=== PATIENT | male | born 1965 | race Caucasian/White ===

== ENCOUNTER 2016-09-19 08:47 | Outpatient (CLI) | payer OTHER | END 2016-09-19 08:48 | disposition home or self-care (01) | DX: G47.33 Obstructive sleep apnea (adult) (pediatric) (principal) ==

== ENCOUNTER 2016-10-25 08:43 | Outpatient (CLI) | payer OTHER | END 2016-10-25 08:44 | disposition home or self-care (01) | LOC: SC 08:43 | PROVIDERS: ATTEND Nurse Practitioner Family | DX: G47.33 Obstructive sleep apnea (adult) (pediatric) (principal) | CPT/HCPCS: 99212; 99214 ==

== ENCOUNTER 2017-09-14 08:57 | Emergency (ER) | payer OTHER ==
--- NOTE | 2017-09-14 10:09 | XRAY Report ---
EXAM: CHEST RADIOGRAPHY EXAM DATE: 09/14/2017 09:49 AM. CLINICAL HISTORY: Dyspnea. Cough for 5 days. COMPARISON: None. TECHNIQUE: 2 views. FINDINGS: Lungs/Pleura: No focal consolidation evident. No pleural effusion. No pneumothorax. Normal volumes. Mediastinum: Heart and mediastinal contours are unremarkable. Other: None. IMPRESSION: Normal 2-view chest radiography. [facility] Referring Provider Line: [phone] SITE ID: [id number]
--- NOTE | 2017-09-14 10:09 | XRAY Preliminary Report ---
Exam: XR CHEST 2 VIEW X-RAY IMPRESSION: Normal 2-view chest radiography. [facility] SITE ID: [id number]
[2017-09-14] MEDS ORDERED: IBUPROFEN 800 MG TABLET PO STA (10:39)
[2017-09-14] MEDS ORDERED: OSELTAMIVIR 75 MG CAPSULE PO STA (10:39)
--- NOTE | 2017-09-14 10:39 | ED Physician Documentation ---
PD HPI URI - Stated complaint Stated Complaint: V/D/UNABLE TO BREATH - Chief complaint Chief Complaint: Resp - History obtained from History obtained from: Patient - History of Present Illness Timing - onset: How many days ago (4) Timing duration: Days (4) Timing details: Still present Associated symptoms: Fever, Sore throat, Productive cough Contributing factors: Sick contact (Son with similar symptoms.) - Additional information Additional information: The patient is a 52-year-old male who presents with sore throat, cough, and shortness of breath that started 4 days ago and has been persisting. He had vomiting and diarrhea initially but those symptoms have resolved. He denies recent fever, but has been taking ibuprofen. His son has been sick with similar symptoms. Review of Systems Constitutional: reports: Fatigue. denies: Fever Eyes: denies: Discharge Ears: denies: Ear pain Nose: denies: Congestion Throat: reports: Sore throat Cardiac: denies: Chest pain / pressure Respiratory: reports: Dyspnea, Cough GI: denies: Abdominal Pain : denies: Dysuria Skin: denies: Rash Neurologic: denies: Headache PD PAST MEDICAL HISTORY - Past Medical History Cardiovascular: Hypertension Respiratory: Asthma, Other Neuro: None Endocrine/Autoimmune: None GI: None : None HEENT: None Psych: None Musculoskeletal: None Derm: None - Past Surgical History Past Surgical History: Yes HEENT: Tonsil/Adenoidectomy - Present Medications Home Medications: Ambulatory Orders Medication Instructions Recorded Confirmed Albuterol Sulfate [Proair Hfa] 1 puffs INH DAILY 06/17/15 05/29/16 Lisinopril 1 tab PO DAILY 05/29/16 05/29/16 Triamcinolone Acetonide [Nasacort] 1 spray JAG DAILY 05/29/16 05/29/16 Oseltamivir [Tamiflu] 75 mg PO BID #14 capsule 09/14/17 - Allergies Allergies/Adverse Reactions: Allergies Allergy/AdvReac Type Severity Reaction Status Date / Time No Known Drug Allergies Allergy Verified 09/14/17 09:13 - Social History Does the pt smoke?: No Smoking Status: Never smoker Does the pt drink ETOH?: Yes Does the pt have substance abuse?: No - Immunizations Immunizations are current?: Yes - POLST Patient has POLST: No PD ED PE NORMAL - Vitals Vital signs reviewed: Yes (Initially hypertensive.) - General General: Alert and oriented X 3, Well developed/nourished, Other (Appears somewhat miserable.) - HEENT HEENT: Atraumatic, Ears normal, Moist mucous membranes, Pharynx benign - Neck Neck: Supple, no meningeal sign, No adenopathy (Mildly enlarged anterior cervical nodes bilaterally.) - Cardiac Cardiac: RRR, No murmur - Respiratory Respiratory: Clear bilaterally - Abdomen Abdomen: Soft, Non tender - Back Back: No CVA TTP - Derm Derm: No rash - Extremities Extremities: No edema, No calf tenderness / cord - Neuro Neuro: Alert and oriented X 3, No motor deficit, Normal speech Results - Vitals Vitals: Oxygen O2 Source Room air - Labs Labs: Laboratory Tests 09/14/17 09:20 Influenza A (Rapid) POSITIVE H Influenza B (Rapid) Negative Influenza Types A,B Ag + H - Rads (name of study) CXR Radiology: Prelim report reviewed, EMP read contemporaneously, See rad report ( Normal 2 view chest x-ray.) PD MEDICAL DECISION MAKING - ED course Complexity details: reviewed results, re-evaluated patient, considered differential, d/w patient ED course: The patient's presentation is consistent with influenza, and his influenza swab is positive for influenza A. Chest x-ray reveals no infiltrate or effusion. Treatment in the emergency department included administration of Tamiflu 75 mg orally, and ibuprofen 800 mg orally. He is being discharged with a prescription for Tamiflu. I discussed with him the expected course of illness, outpatient treatment and follow-up, as well as potentially worrisome signs or symptoms that should prompt reevaluation in the emergency department. A work- release form was written for him. Departure - Departure Disposition: 01 Home, Self Care Clinical Impression: Influenza A Condition: Stable Instructions: ED Flu Follow-Up: Leslee Reyes DO [Primary Care Provider] - Prescriptions: Oseltamivir [Tamiflu] 75 mg PO BID #14 capsule Comments: Take Tamiflu twice daily as prescribed. You can use ibuprofen, up to 800 mg 3 times daily for its anti-inflammatory effect. Follow up with your primary physician within 2 weeks. Call to schedule appointment. Return to the emergency department if you develop increasing difficulty breathing, or otherwise worsening symptoms. Forms: Activity restrictions Discharge Date/Time: 09/14/17 10:49
[2017-09-14 10:52] VITALS: BP 112/87
== END 2017-09-14 10:49 | disposition home or self-care (01) ==
LOC: ED 08:57
DX: J09.X2 Influenza due to identified novel influenza A virus with other respiratory manifestations (principal); I10 Essential (primary) hypertension
CPT/HCPCS: 71046; 87275; 87276; 99283; A9270

== ENCOUNTER 2018-02-06 07:18 | Emergency (ER) | payer OTHER ==
[2018-02-06 07:46] LABS: BASOPHILS % (AUTO) 0.4 %; EOSINOPHILS # (AUTO) 0.1 10^3/uL (0.0-0.7); HGB - HEMOGLOBIN 16.5 g/dL (14.0-18.0); LYMPHOCYTES # (AUTO) 1.5 10^3/uL (1.5-3.5); LYMPHOCYTES % (AUTO) 29.5 %; MEAN CORPUSCULAR HEMOGLOBIN 33.4 pg (27.0-31.0); MEAN CORPUSCULAR HGB CONC 34.5 g/dL (32.0-36.0); MEAN CORPUSCULAR VOLUME 96.7 fL (80.0-94.0); MEAN PLATELET VOLUME 8.1 fL (7.4-11.4); MONOCYTES # (AUTO) 0.8 10^3/uL (0.0-1.0); MONOCYTES % (AUTO) 16.3 %; NEUTROPHILS # (AUTO) 2.6 10^3/uL (1.5-6.6); NEUTROPHILS % (AUTO) 52.8 %; PLT - PLATELET COUNT 132 10^3/uL (130-450); RED BLOOD COUNT 4.95 10^6/uL (4.70-6.10); RED CELL DISTRIBUTION WIDTH 13.3 % (12.0-15.0)
[2018-02-06 07:59] LABS: ALBUMIN 4.6 g/dL (3.2-5.5); ALBUMIN/GLOBULIN RATIO 1.2 (1.0-2.2); BILIRUBIN,TOTAL 1.4 mg/dL (0.2-1.0); CALCIUM 9.5 mg/dL (8.5-10.3); CREATININE 1.7 mg/dL (0.6-1.2); TOTAL PROTEIN 8.3 g/dL (6.7-8.2)
[2018-02-06] MEDS ORDERED: MAGNESIUM SULFATE 2 GRAM 2 GM/50 ML BAG IV STA (08:14)
--- NOTE | 2018-02-06 08:33 | ED Physician Documentation ---
PD HPI SYNCOPE - Stated complaint Stated Complaint: DIZZY/SYNCOPE - Chief complaint Chief Complaint: Neuro - History obtained from History obtained from: Patient - History of Present Illness Witnessed: Unwitnessed Timing - onset: Yesterday Duration: Seconds Preceding symptoms: Vision changes, Light headed Associated symptoms: Other (shaking and weakness) Contributing factors: Decreased PO intake, Other (ETOH) Injury occurred: None Similar symptoms before: Has not had sx before Recently seen: Not recently seen - Additional information Additional information: 52 y/o male with a history of hypertension and alcohol abuse did not feel well yesterday and when he went to get ready for work he was too shaky to drive and he went back to bed and after awakening he went to get up and had a syncopal episode after about 3 steps. He "slumped" to the ground and was not injured. He reports that this past week he has been feeling that when he lays down he can feel his heart pounding. He usually drinks Gatorade for hydration and drinks his vodka neat. He indicates that he drinks about 1 pint per day (buys a half gallon every 3-4 days) Review of Systems Constitutional: reports: Fatigue, Sweats. denies: Fever, Chills, Myalgias Eyes: denies: Decreased vision Ears: denies: Ear pain Nose: denies: Congestion Throat: denies: Sore throat Cardiac: denies: Chest pain / pressure, Palpitations Respiratory: denies: Dyspnea, Cough GI: denies: Abdominal Pain, Nausea, Vomiting : denies: Dysuria, Frequency Skin: denies: Rash Musculoskeletal: denies: Neck pain, Back pain, Extremity pain Neurologic: reports: Generalized weakness, Syncope. denies: Focal weakness, Numbness, Head injury, LOC PD PAST MEDICAL HISTORY - Past Medical History Cardiovascular: Hypertension Respiratory: Asthma, Other Endocrine/Autoimmune: None GI: None : None HEENT: None Psych: None Musculoskeletal: None Derm: None - Past Surgical History Past Surgical History: Yes HEENT: Tonsil/Adenoidectomy - Present Medications Home Medications: Ambulatory Orders Medication Instructions Recorded Confirmed Albuterol Sulfate [Proair Hfa] 1 puffs INH DAILY 06/17/15 05/29/16 Lisinopril 1 tab PO DAILY 05/29/16 05/29/16 Triamcinolone Acetonide [Nasacort] 1 spray JAG DAILY 05/29/16 05/29/16 Cetirizine [ZyrTEC] 10 mg PO ONCE 02/06/18 02/06/18 Lorazepam [Ativan] 1 - 2 mg PO Q6HR PRN #30 tablet 02/06/18 - Allergies Allergies/Adverse Reactions: Allergies Allergy/AdvReac Type Severity Reaction Status Date / Time No Known Drug Allergies Allergy Verified 02/06/18 07:27 - Social History Does the pt smoke?: No Smoking Status: Never smoker Does the pt drink ETOH?: Yes Does the pt have substance abuse?: No - Immunizations Immunizations are current?: Yes - POLST Patient has POLST: No PD ED PE NORMAL - Vitals Vital signs reviewed: Yes (hypertensive) - General General: Alert and oriented X 3, No acute distress, Well developed/nourished - HEENT HEENT: Atraumatic, PERRL, EOMI - Neck Neck: Supple, no meningeal sign, No bony TTP - Cardiac Cardiac: RRR, No murmur - Respiratory Respiratory: No respiratory distress, Clear bilaterally - Abdomen Abdomen: Soft, Non tender - Back Back: No CVA TTP, No spinal TTP - Derm Derm: Normal color, Warm and dry, No rash - Extremities Extremities: No deformity, No edema - Neuro Neuro: Alert and oriented X 3, materials intern 2-12 intact, No motor deficit, No sensory deficit, Normal speech Eye Opening: Spontaneous Motor: Obeys Commands Verbal: Oriented GCS Score: 15 - Psych Psych: Normal mood, Normal affect Results - Vitals Vitals: Vital Signs - 24 hr 02/06/18 02/06/18 02/06/18 07:25 07:35 08:04 Temperature 36.0 C L Heart Rate 91 88 89 Respiratory 20 16 18 Rate Blood Pressure 183/88 H 172/92 H 162/86 H O2 Saturation 98 02/06/18 02/06/18 02/06/18 08:30 09:00 10:00 Temperature Heart Rate 85 80 76 Respiratory 16 18 16 Rate Blood Pressure 170/86 H 158/77 H 161/106 H O2 Saturation 94 94 94 02/06/18 02/06/18 11:00 11:30 Temperature Heart Rate 74 75 Respiratory 14 14 Rate Blood Pressure 141/79 H 152/88 H O2 Saturation 94 94 Oxygen O2 Source Room air - EKG (time done) 0725 Rate: Rate (enter#) (90) QRS: Poor R wave progression Compare to prior EKG: Old EKG unavailable Computer interpretation: Agree with computer - Labs Labs: Laboratory Tests 02/06/18 02/06/18 02/06/18 07:37 07:37 07:37 WBC 5.0 RBC 4.95 Hgb 16.5 Hct 47.8 MCV 96.7 H MCH 33.4 H MCHC 34.5 RDW 13.3 Plt Count 132 MPV 8.1 Neut # (Auto) 2.6 Lymph # (Auto) 1.5 [place] # (Auto) 0.8 Eos # (Auto) 0.1 Baso # (Auto) 0.0 Absolute Nucleated RBC 0.00 Nucleated RBC % 0.1 Sodium 132 L Potassium 3.6 Chloride 96 L Carbon Dioxide 23 Anion Gap 13.0 BUN 32 H Creatinine 1.7 H Estimated GFR (MDRD) 42 L Glucose 143 H POC Whole Bld Glucose Calcium 9.5 Total Bilirubin 1.4 H AST 123 H ALT 85 H Alkaline Phosphatase 75 Troponin I < 0.04 Total Protein 8.3 H Albumin 4.6 Globulin 3.7 Albumin/Globulin Ratio 1.2 Lipase 27 02/06/18 07:39 WBC RBC Hgb Hct MCV MCH MCHC RDW Plt Count MPV Neut # (Auto) Lymph # (Auto) [place] # (Auto) Eos # (Auto) Baso # (Auto) Absolute Nucleated RBC Nucleated RBC % Sodium Potassium Chloride Carbon Dioxide Anion Gap BUN Creatinine Estimated GFR (MDRD) Glucose POC Whole Bld Glucose 157 H Calcium Total Bilirubin AST ALT Alkaline Phosphatase Troponin I Total Protein Albumin Globulin Albumin/Globulin Ratio Lipase Procedures - IVC sono (time) 0810 Bedside IVC sono: IVC measures (cm) (0.92), IVC collapsed c insp (cm) (complete) , Dehydration (est 1.5 -2 liter deficit) PD MEDICAL DECISION MAKING - ED course Complexity details: reviewed old records, reviewed results, re-evaluated patient , considered differential, d/w patient ED course: 52-year-old male has some issues with alcohol and today he is come in dehydrated and has had a syncopal episode yesterday. He appears a bit shaky today. He is administered a banana bag IV followed by a liter of saline as well. He feels much improved. I did discuss with the patient use of Ativan for alcohol withdrawal and he would like some Ativan prescribed. - Sepsis Event Vital Signs: Vital Signs - 24 hr 02/06/18 02/06/18 02/06/18 07:25 07:35 08:04 Temperature 36.0 C L Heart Rate 91 88 89 Respiratory 20 16 18 Rate Blood Pressure 183/88 H 172/92 H 162/86 H O2 Saturation 98 02/06/18 02/06/18 02/06/18 08:30 09:00 10:00 Temperature Heart Rate 85 80 76 Respiratory 16 18 16 Rate Blood Pressure 170/86 H 158/77 H 161/106 H O2 Saturation 94 94 94 02/06/18 02/06/18 11:00 11:30 Temperature Heart Rate 74 75 Respiratory 14 14 Rate Blood Pressure 141/79 H 152/88 H O2 Saturation 94 94 Oxygen O2 Source Room air Departure - Departure Disposition: 01 Home, Self Care Clinical Impression: Dehydration Alcohol withdrawal Qualifiers: Complication of substance-induced condition: uncomplicated Qualified Code(s): F10.230 - Alcohol dependence with withdrawal, uncomplicated Instructions: ED Withdrawal Alcohol, ED Dehydration Follow-Up: Leslee Reyes DO [Primary Care Provider] - Prescriptions: Lorazepam [Ativan] 1 - 2 mg PO Q6HR PRN #30 tablet PRN Reason: withdrawal symptoms Forms: Activity restrictions Discharge Date/Time: 02/06/18 13:30
[2018-02-06] MEDS: THIAMINE INJ 100 MG, FOLIC ACID INJ 1 MG in SODIUM CHLORIDE 0.9% 100ML 100 ML IV STA (08:51)
[2018-02-06] MEDS: MULTIVITAMIN 10 ML in SODIUM CHLORIDE 0.9% 1,000 ML IV STA (08:51)
[2018-02-06] MEDS: SODIUM CHLORIDE 0.9% IV ONE (09:10)
[2018-02-06] MEDS: MAGNESIUM SULFATE IV ONE (09:10)
[2018-02-06] MEDS: SODIUM CHLORIDE 0.9% 1,000 ML IV ONE (11:35)
[2018-02-06 12:01] VITALS: BP 152/88
== END 2018-02-06 13:30 | disposition home or self-care (01) ==
LOC: ED 07:18
DX: E86.0 Dehydration (principal); F10.230 Alcohol dependence with withdrawal, uncomplicated; I10 Essential (primary) hypertension
CPT/HCPCS: 36415; 80053; 83690; 84484; 85025; 93005; 96365; 96366; 96368; 99284

== ENCOUNTER 2019-07-16 08:00 | Outpatient (CLI) | payer OTHER ==
[2019-07-16 13:27] LABS: BASOPHILS % (AUTO) 0.3 %; EOSINOPHILS % (AUTO) 0.2 %; HGB - HEMOGLOBIN 14.1 g/dL (14.0-18.0); LYMPHOCYTES # (AUTO) 1.2 10^3/uL (1.5-3.5); LYMPHOCYTES % (AUTO) 19.2 %; MEAN CORPUSCULAR HEMOGLOBIN 32.3 pg (27.0-31.0); MEAN CORPUSCULAR HGB CONC 32.5 g/dL (32.0-36.0); MEAN CORPUSCULAR VOLUME 99.5 fL (80.0-94.0); MONOCYTES # (AUTO) 0.6 10^3/uL (0.0-1.0); MONOCYTES % (AUTO) 8.8 %; NEUTROPHILS # (AUTO) 4.6 10^3/uL (1.5-6.6); PLT - PLATELET COUNT 185 10^3/uL (130-450); RED BLOOD COUNT 4.36 10^6/uL (4.70-6.10); RED CELL DISTRIBUTION WIDTH 12.7 % (12.0-15.0); WHITE BLOOD COUNT 6.5 x10^3/uL (4.8-10.8)
[2019-07-16 13:30] LABS: ALBUMIN 4.6 g/dL (3.2-5.5); ALBUMIN/GLOBULIN RATIO 1.4 (1.0-2.2); BILIRUBIN,TOTAL 0.7 mg/dL (0.2-1.0); CALCIUM 9.1 mg/dL (8.5-10.3); CREATININE 0.8 mg/dL (0.6-1.2); TOTAL PROTEIN 7.9 g/dL (6.7-8.2); URIC ACID 8.3 mg/dL (2.6-7.2)
== END 2019-07-16 23:59 | disposition home or self-care (01) ==
LOC: LAB.WCP 08:00
PROVIDERS: ATTEND Family Medicine
DX: I10 Essential (primary) hypertension (principal); M10.9 Gout, unspecified
CPT/HCPCS: 36415; 80053; 84550; 85025; 85651

== ENCOUNTER 2021-04-27 07:33 | Outpatient (CLI) | payer BC ==
[2021-04-27 08:11] LABS: BASOPHILS % (AUTO) 0.7 %; EOSINOPHILS # (AUTO) 0.1 10^3/uL (0.0-0.7); EOSINOPHILS % (AUTO) 1.9 %; HCT - HEMATOCRIT 46.6 % (42.0-52.0); HGB - HEMOGLOBIN 15.5 g/dL (14.0-18.0); LYMPHOCYTES # (AUTO) 1.4 10^3/uL (1.5-3.5); LYMPHOCYTES % (AUTO) 32.3 %; MEAN CORPUSCULAR HEMOGLOBIN 33.7 pg (27.0-31.0); MEAN CORPUSCULAR HGB CONC 33.3 g/dL (32.0-36.0); MEAN CORPUSCULAR VOLUME 101.3 fL (80.0-94.0); MEAN PLATELET VOLUME 9.2 fL (7.4-11.4); MONOCYTES # (AUTO) 0.5 10^3/uL (0.0-1.0); MONOCYTES % (AUTO) 10.9 %; NEUTROPHILS # (AUTO) 2.3 10^3/uL (1.5-6.6); NEUTROPHILS % (AUTO) 53.7 %; PLT - PLATELET COUNT 187 10^3/uL (130-450); RED CELL DISTRIBUTION WIDTH 13.7 % (12.0-15.0); WHITE BLOOD COUNT 4.3 x10^3/uL (4.8-10.8)
[2021-04-27 08:20] LABS: ESTIMATED AVERAGE GLUCOSE 123 mg/dL (70-100); HEMOGLOBIN A1c% 5.9 % (4.27-6.07)
[2021-04-27 08:21] LABS: ALBUMIN 4.6 g/dL (3.2-5.5); ALBUMIN/GLOBULIN RATIO 1.3 (1.0-2.2); ALKALINE PHOSPHATASE 77 IU/L (42-121); ALT ALANINE AMINOTRANSFERASE 25 IU/L (10-60); AST ASPARTATE AMINOTRANSFERASE 26 IU/L (10-42); BILIRUBIN,TOTAL 0.9 mg/dL (0.2-1.0); BUN - BLOOD UREA NITROGEN 10 mg/dL (6-20); CALCIUM 9.4 mg/dL (8.5-10.3); CARBON DIOXIDE - CO2 24 mmol/L (21-32); CHLORIDE 104 mmol/L (101-111); CHOL/HDL RATIO 2.8 (<5.0); CHOLESTEROL 218 mg/dL; GFR - MDRD 77 (>89); GLUCOSE 118 mg/dL (70-100); HDL CHOLESTEROL 79 mg/dL; LDL CHOLESTEROL,CALCULATED 103 mg/dL; LDL/HDL RATIO 1.3 (<3.6); POTASSIUM 4.6 mmol/L (3.5-5.0); SODIUM 140 mmol/L (135-145); TOTAL PROTEIN 8.1 g/dL (6.7-8.2); TRIGLYCERIDES 179 mg/dL; URIC ACID 10.6 mg/dL (2.6-7.2); VLDL CHOLESTEROL 36 mg/dL
== END 2021-04-27 07:34 | disposition home or self-care (01) ==
LOC: LAB 07:33
PROVIDERS: ATTEND Family Medicine
DX: I10 Essential (primary) hypertension (principal); R73.01 Impaired fasting glucose; M10.9 Gout, unspecified
CPT/HCPCS: 36415; 80053; 80061; 83036; 83721; 84550; 85025

== ENCOUNTER 2021-05-08 07:13 | Outpatient (CLI) | payer BC ==
--- NOTE | 2021-05-08 08:19 | Ultrasound Report ---
PROCEDURE: Abdomen Complete INDICATIONS: ALCOHOLISM TECHNIQUE: Real-time scanning was performed of the abdominal and retroperitoneal organs, with image documentatio n. COMPARISON: None. FINDINGS: Liver: Liver is mildly prominent in size and demonstrates mild increased overall echogenicity. Withi n the right liver, there is a 2.2 x 2.3 x 1.7 cm lesion that demonstrates a hypoechoic center and a h yperechoic rim. No abnormal vascularity can be seen.. Gallbladder: No gallstones or significant sludge can be seen. The gallbladder wall does not appear th ickened. There is no specific pericholecystic fluid. The sonographic Hartley's sign is negative. Biliary ducts: Intrahepatic bile ducts are non-dilated. Extrahepatic bile duct caliber measures 5 m m. Normal is 6-7 mm or less in diameter, or 10 mm or less post-cholecystectomy. Pancreas: Visualized portions of the pancreas are sonographically normal. Spleen: Spleen is normal in size and homogeneous in echotexture. Kidneys: Kidneys are normal in size and echotexture. Right kidney measures 10.7 cm long; left kidne y measures 11.4 cm long. No hydronephrosis or nephrolithiasis. No solid masses. Bilateral simple a ppearing renal cysts are seen, with a 2.2 cm right cyst seen superiorly, and a 3.9 cm simple cyst see n on the left inferiorly. Aorta: Visualized aorta is normal in caliber at less than 3 cm. Iliacs: Proximal common iliac arteries are normal in caliber at less than 2.5 cm. IVC: Intrahepatic inferior vena cava is patent. Miscellaneous: No free abdominal fluid. IMPRESSION: Increased liver echogenicity is seen. This is nonspecific, yet it is most commonly attributed to fatt y infiltration. Differential diagnosis includes cirrhosis and fibrosis, however. Within the right liver, there is a 2.3 cm hyperechoic lesion, which is nonspecific, yet may represent a benign hemangioma. When clinically appropriate in this patient with a given history of alcoholism, please consider a dedicated liver MRI (without and with contrast) for further evaluation (assuming that there is no contraindication). Incidental note is made of: Bilateral simple appearing renal cysts Reviewed by: Saad Morrison MD on 05/08/2021 7:18 AM RJ Approved by: Saad Morrison MD on 05/08/2021 7:18 AM AKJOSEPH Station ID: [id number]
== END 2021-05-08 07:14 | disposition home or self-care (01) ==
LOC: DI 07:13
PROVIDERS: ATTEND Family Medicine
DX: F10.20 Alcohol dependence, uncomplicated (principal); K76.9 Liver disease, unspecified; N28.1 Cyst of kidney, acquired

== ENCOUNTER 2021-06-13 07:35 | Outpatient (CLI) | payer BC ==
[2021-06-13 08:21] LABS: CREATININE 1.1 mg/dL (0.6-1.2)
[2021-06-13] MEDS ORDERED: GADOBUTROL 15 MMOL/15 ML VIAL ONE (09:01)
--- NOTE | 2021-06-13 12:53 | MRI Report ---
PROCEDURE: Abdomen W/WO INDICATIONS: LIVER MASS CONTRAST: IV CONTRAST: Gadavist ml: 11.5 TECHNIQUE: Coronal ultra fast SE, axial 2D spoiled GE in- and [id number]; axial breath-hold T2 fast SE. Dynam ic axial ultra fast GE during the administration of contrast; post-contrast coronal ultra fast GE or 2D spoiled GE with fat saturation from the hepatic dome to the iliac crests. Optional diffusion weig hted imaging and ADC may be performed. COMPARISON: Ultrasound of the abdomen 05/08/2021 FINDINGS: Image quality: Suboptimal demonstrating imaging artifact on most sequences.. Lung bases: No basal pleural effusions. Heart size is normal. Solid organs: There is a bilobed, T2 hyperintense, well-defined mass in segment of the liver tor uring approximately 1.9 x 1.9 x 1.5 cm. Postcontrast, the arterial phase demonstrates peripheral nodu lar enhancement and follows blood pool on subsequent enhanced phases. No other liver lesions visible. The liver is otherwise of normal signal and size. Smooth margin. The spleen is normal in size and enhancement. Gallbladder demonstrates normal wall thickness. Bilia ry system is non dilated. Pancreas is normal in morphology. No adrenal nodules. Both kidneys demon strate normal size and enhancement, without hydronephrosis. There are simple cysts in each kidney, t he largest in the right upper pole measures 2.8 cm and the largest in the left mid kidney measures 4. 5 cm. Nodes and vessels: No retroperitoneal or mesenteric adenopathy by size criteria. Aorta and inferior vena cava are normal in size. Bowel and peritoneum: Unenhanced bowel loops are normal in caliber. No free fluid. Bones and soft tissues: No ventral hernias. Bone marrow is normal in overall signal. IMPRESSION: 1. 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 2. Bilateral renal cysts. 3. No MR evidence of cirrhosis or steatosis of the liver. Reviewed by: Kiah Harmon MD on 06/13/2021 12:51 PM PDT Approved by: Kiah Harmon MD on 06/13/2021 12:51 PM PDT Station ID: [id number]
[2021-06-13] MEDS ORDERED: GADOBUTROL 15 MMOL/15 ML VIAL IVP ONE (14:40)
== END 2021-06-13 07:36 | disposition home or self-care (01) ==
LOC: DI 07:35
PROVIDERS: ATTEND Family Medicine
DX: K76.89 Other specified diseases of liver (principal); D18.03 Hemangioma of intra-abdominal structures; N28.1 Cyst of kidney, acquired; F10.20 Alcohol dependence, uncomplicated
CPT/HCPCS: 36415; 74183; 82565; A9585

== ENCOUNTER 2021-07-23 10:54 | Outpatient (CLI) | payer BC | END 2021-07-23 10:55 | disposition home or self-care (01) | LOC: LAB.N 10:54 | PROVIDERS: ATTEND Surgery | DX: J11.1 Influenza due to unidentified influenza virus with other respiratory manifestations (principal); Z20.822 Contact with and (suspected) exposure to COVID-19 ==

== ENCOUNTER 2021-07-29 07:22 | Day surgery (SDC) | payer BC ==
[2021-07-29] MEDS ORDERED: LACTATED RINGERS 1,000 ML IV ONE (07:27)
[2021-07-29] MEDS ORDERED: MIDAZOLAM 2 MG/2 ML VIAL ONE (07:33)
--- NOTE | 2021-07-29 08:01 | ANESTHESIA ---
Pre-Anesthesia VS, & Labs - Diagnosis screening , history of polyps - Procedure colonoscopy Vital Signs: Temp Pulse Resp BP Pulse Ox 36.7 C 87 19 152/86 H 97 07/29/21 07:37 07/29/21 07:37 07/29/21 07:37 07/29/21 07:37 07/29/21 07:37 Height: 6 ft 2 in Weight (kg): 108.2 kg Body Mass Index: 30.6 BMI Classification: Obese - NPO >8 hours Home Medications and Allergies Home Medications: Ambulatory Orders Amlodipine Besylate [Norvasc] 10 mg PO DAILY 07/21/21 Mometasone/Formoterol [Dulera 200 Mcg-5 Mcg Inhaler] 1 puffs INH BID 07/21/21 Montelukast [Singulair] 10 mg PO QPM 07/21/21 Albuterol Sulfate [Proair Hfa] 1 puffs INH DAILY 06/17/15 Lisinopril 1 tab PO DAILY 05/29/16 Triamcinolone Acetonide [Nasacort] 1 spray JAG DAILY 05/29/16 Cetirizine [ZyrTEC] 10 mg PO DAILY PRN 02/06/18 Amlodipine Besylate [Norvasc] 10 mg PO DAILY 07/21/21 Mometasone/Formoterol [Dulera 200 Mcg-5 Mcg Inhaler] 1 puffs INH BID 07/21/21 Montelukast [Singulair] 10 mg PO QPM 07/21/21 Allergies/Adverse Reactions: Allergies Allergy/AdvReac Type Severity Reaction Status Date / Time cat dander Allergy Hives Verified 07/21/21 13:29 crab Allergy Hives Verified 07/21/21 13:29 dog dander Allergy Hives Verified 07/21/21 13:29 Anes History & Medical History - Anesthetic History Anesthesia Complications: reports: No previous complications - Medical History Cardiovascular: reports: Hypertension Pulmonary: reports: Asthma, Sleep apnea Gastrointestinal: reports: Colon polyps Urinary: reports: None Musculoskeletal: reports: Osteoarthritis, Gout, Chronic back pain Endocrine/Autoimmune: reports: None Blood Disorders: reports: None Skin: reports: None Smoking Status: Never smoker History of Cancer?: No - Surgical History General: reports: Colonoscopy Eyes Ears Nose Throat (EENT): reports: Tonsil/Adenoidectomy Exam General: Alert, Oriented x3 Dental: WNL Mouth Opening: Greater than 4 Fingerbreadths Mallampati classification: II Thyromental Distance: greater than 6 cm Respiratory: Lungs clear Cardiovascular: Regular rate Plan Anesthesia Type: Total IV Consent for Procedure(s) Verified and Reviewed: Yes Code Status: Attempt Resuscitation ASA classification: 2-Mild systemic disease Is this case an emergency?: No
[2021-07-29] MEDS ORDERED: PROPOFOL 500 MG/50 ML 500 MG/50 ML VIAL ONE (08:11)
[2021-07-29] MEDS ORDERED: LACTATED RINGERS 400 ML IV ONE (08:59)
[2021-07-29 09:18] VITALS: BP 127/76
--- NOTE | 2021-07-29 09:46 | ANESTHESIA POST OP EVALUATION ---
Anesthesia Post Eval - Post Anesthesia Eval Vitals: Last Vital Signs Temp 36.7 C 07/29/21 09:17 Pulse 75 07/29/21 09:17 Resp 16 07/29/21 09:17 BP 127/76 07/29/21 09:17 Pulse Ox 98 07/29/21 09:17 CV Function Including HR & BP: Stable Pain Control: Satisfactory Nausea & Vomiting: Negative Mental Status: Baseline Respiratory Status: Airway Patent Hydration Status: Satisfactory Anesthesia Complications: None
== END 2021-07-29 07:23 | disposition home or self-care (01) ==
LOC: SDS 07:22
PROVIDERS: ATTEND Surgery
PROC: 0DBM8ZX Excision of Descending Colon, Via Natural or Artificial Opening Endoscopic, Diagnostic (ICD-10-PCS; 2021-07-29)
PROC: 0DBM8ZX Excision of Descending Colon, Via Natural or Artificial Opening Endoscopic, Diagnostic (ICD-10-PCS; principal; 2021-07-29 08:30)
DX: Z12.11 Encounter for screening for malignant neoplasm of colon (principal); D12.4 Benign neoplasm of descending colon; K57.30 Diverticulosis of large intestine without perforation or abscess without bleeding; E66.9 Obesity, unspecified; M10.9 Gout, unspecified; N18.9 Chronic kidney disease, unspecified; G47.33 Obstructive sleep apnea (adult) (pediatric); J45.909 Unspecified asthma, uncomplicated; I12.9 Hypertensive chronic kidney disease with stage 1 through stage 4 chronic kidney disease, or unspecified chronic kidney disease; Z68.32 Body mass index [BMI] 32.0-32.9, adult; Z79.51 Long term (current) use of inhaled steroids; Z79.899 Other long term (current) drug therapy
CPT/HCPCS: 45380; 45385; J7120

== ENCOUNTER 2022-01-05 16:03 | Outpatient (CLI) | payer OTHER ==
[2022-01-05 16:15] LABS: BASOPHILS % (AUTO) 0.6 %; EOSINOPHILS # (AUTO) 0.1 10^3/uL (0.0-0.7); EOSINOPHILS % (AUTO) 1.2 %; HCT - HEMATOCRIT 48.7 % (42.0-52.0); HGB - HEMOGLOBIN 16.8 g/dL (14.0-18.0); LYMPHOCYTES # (AUTO) 1.7 10^3/uL (1.5-3.5); LYMPHOCYTES % (AUTO) 24.5 %; MEAN CORPUSCULAR HGB CONC 34.5 g/dL (32.0-36.0); MEAN CORPUSCULAR VOLUME 95.7 fL (80.0-94.0); MEAN PLATELET VOLUME 9.4 fL (7.4-11.4); MONOCYTES # (AUTO) 0.8 10^3/uL (0.0-1.0); MONOCYTES % (AUTO) 11.2 %; NEUTROPHILS # (AUTO) 4.3 10^3/uL (1.5-6.6); NEUTROPHILS % (AUTO) 62.2 %; PLT - PLATELET COUNT 174 10^3/uL (130-450); RED BLOOD COUNT 5.09 10^6/uL (4.70-6.10); RED CELL DISTRIBUTION WIDTH 14.5 % (12.0-15.0); WHITE BLOOD COUNT 6.9 x10^3/uL (4.8-10.8)
[2022-01-05 16:32] LABS: ALBUMIN 4.7 g/dL (3.2-5.5); ALBUMIN/GLOBULIN RATIO 1.3 (1.0-2.2); ALKALINE PHOSPHATASE 91 IU/L (42-121); ALT ALANINE AMINOTRANSFERASE 23 IU/L (10-60); AST ASPARTATE AMINOTRANSFERASE 24 IU/L (10-42); BILIRUBIN,TOTAL 0.6 mg/dL (0.2-1.0); BUN - BLOOD UREA NITROGEN 14 mg/dL (6-20); CALCIUM 9.7 mg/dL (8.5-10.3); CARBON DIOXIDE - CO2 24 mmol/L (21-32); CHLORIDE 102 mmol/L (101-111); CHOL/HDL RATIO 1.8 (<5.0); CHOLESTEROL 161 mg/dL; CREATININE 0.9 mg/dL (0.6-1.2); GFR - MDRD 87 (>89); GLUCOSE 105 mg/dL (70-100); HDL CHOLESTEROL 89 mg/dL; LDL CHOLESTEROL,CALCULATED 54 mg/dL; LDL/HDL RATIO 0.6 (<3.6); POTASSIUM 3.9 mmol/L (3.5-5.0); SODIUM 139 mmol/L (135-145); TOTAL PROTEIN 8.2 g/dL (6.7-8.2); TRIGLYCERIDES 92 mg/dL; VLDL CHOLESTEROL 18 mg/dL
[2022-01-05 20:47] LABS: ESTIMATED AVERAGE GLUCOSE 114 mg/dL (70-100); HEMOGLOBIN A1c% 5.6 % (4.27-6.07)
== END 2022-01-05 16:04 | disposition home or self-care (01) ==
LOC: LAB 16:03
PROVIDERS: ATTEND Family Medicine
DX: F10.20 Alcohol dependence, uncomplicated (principal); I10 Essential (primary) hypertension; R73.01 Impaired fasting glucose
CPT/HCPCS: 36415; 80053; 80061; 83036; 83721; 85025

== ENCOUNTER 2023-04-08 11:36 | Emergency (ER) | payer MEDICAID, OTHER ==
[2023-04-08 12:22] LABS: BASOPHILS % (AUTO) 0.7 %; EOSINOPHILS % (AUTO) 0.5 %; HCT - HEMATOCRIT 42.3 % (42.0-52.0); HGB - HEMOGLOBIN 14.7 g/dL (14.0-18.0); LYMPHOCYTES # (AUTO) 1.5 10^3/uL (1.5-3.5); LYMPHOCYTES % (AUTO) 26.6 %; MEAN CORPUSCULAR HEMOGLOBIN 34.7 pg (27.0-31.0); MEAN CORPUSCULAR HGB CONC 34.8 g/dL (32.0-36.0); MEAN CORPUSCULAR VOLUME 99.8 fL (80.0-94.0); MEAN PLATELET VOLUME 9.8 fL (7.4-11.4); MONOCYTES # (AUTO) 0.8 10^3/uL (0.0-1.0); PLT - PLATELET COUNT 307 10^3/uL (130-450); RED BLOOD COUNT 4.24 10^6/uL (4.70-6.10); RED CELL DISTRIBUTION WIDTH 13.4 % (12.0-15.0); WHITE BLOOD COUNT 5.6 x10^3/uL (4.8-10.8)
--- NOTE | 2023-04-08 12:30 | ED Physician Documentation ---
PD HPI SYNCOPE - Stated complaint Stated Complaint: DIZZY,LIGHT HEAD - Chief complaint Chief Complaint: Neuro - History obtained from History obtained from: Patient, Family - Additional information Additional information: 57 yo male with hx HTN, HLD, etoh in remission (drinks a bit still). 2 weeks lightheaded on standing, near syncope. Not associate with chest pain, trouble breathing, changes in bowel movements, dark or tarry stools. He does take lisinopril without recent dose changes. No pedal edema or calf pain. PD PAST MEDICAL HISTORY - Past Medical History Cardiovascular: Hypertension Respiratory: Asthma, Sleep apnea Endocrine/Autoimmune: None GI: Colon polyps : None HEENT: Chronic vision loss Psych: None Musculoskeletal: Osteoarthritis, Gout, Chronic back pain Derm: None - Past Surgical History Past Surgical History: Yes General: Colonoscopy HEENT: Tonsil/Adenoidectomy - Present Medications Home Medications: Ambulatory Orders Medication Instructions Recorded Confirmed Albuterol Sulfate [Proair Hfa] 1 puffs INH DAILY 06/17/15 07/29/21 Lisinopril 1 tab PO DAILY 05/29/16 07/21/21 Triamcinolone Acetonide [Nasacort] 1 spray JAG DAILY 05/29/16 07/29/21 Cetirizine [ZyrTEC] 10 mg PO DAILY PRN 02/06/18 07/29/21 Amlodipine Besylate [Norvasc] 10 mg PO DAILY 07/21/21 07/29/21 Mometasone/Formoterol [Dulera 200 1 puffs INH BID 07/21/21 07/29/21 Mcg-5 Mcg Inhaler] Montelukast [Singulair] 10 mg PO QPM 07/21/21 07/29/21 - Allergies Allergies/Adverse Reactions: Allergies Allergy/AdvReac Type Severity Reaction Status Date / Time cat dander Allergy Hives Verified 04/08/23 11:59 crab Allergy Hives Verified 04/08/23 11:59 dog dander Allergy Hives Verified 04/08/23 11:59 - Social History Does the pt smoke?: No Smoking Status: Never smoker Does the pt drink ETOH?: Yes Does the pt have substance abuse?: No - Immunizations Immunizations are current?: Yes - POLST Patient has POLST: No PD ED PE NORMAL - Vitals Vital signs reviewed: Yes - General General: Alert and oriented X 3, Other (Borderline hypotensive, pale) - HEENT HEENT: PERRL, EOMI - Neck Neck: Supple, no meningeal sign, No bony TTP - Cardiac Cardiac: RRR, No murmur, Other (No pericardial effusion on bedside ultrasound) - Respiratory Respiratory: No respiratory distress, Clear bilaterally - Abdomen Abdomen: Non tender - Back Back: No CVA TTP, No spinal TTP - Derm Derm: Normal color, Warm and dry - Extremities Extremities: No edema, No calf tenderness / cord - Neuro Neuro: Alert and oriented X 3, Normal speech Results - Vitals Vitals: Vital Signs - 24 hr 04/08/23 04/08/23 04/08/23 11:55 11:59 12:29 Temperature 36.7 C 36.7 C Heart Rate 95 95 72 Heart Rate [ Sitting] Heart Rate [ Standing] Heart Rate [ Supine] Respiratory 20 20 15 Rate Blood Pressure 89/60 L 89/60 L 102/65 Blood Pressure [Sitting] Blood Pressure [Standing] Blood Pressure [Supine] O2 Saturation 99 99 100 04/08/23 04/08/23 04/08/23 12:30 13:00 13:25 Temperature Heart Rate 74 67 Heart Rate [ 78 Sitting] Heart Rate [ 80 Standing] Heart Rate [ 66 Supine] Respiratory 16 14 Rate Blood Pressure 100/66 138/76 H Blood Pressure 124/84 H [Sitting] Blood Pressure 85/61 L [Standing] Blood Pressure 142/80 H [Supine] O2 Saturation 100 100 04/08/23 04/08/23 04/08/23 14:00 14:30 15:00 Temperature Heart Rate 62 64 66 Heart Rate [ Sitting] Heart Rate [ Standing] Heart Rate [ Supine] Respiratory 12 16 18 Rate Blood Pressure 150/88 H 160/80 H 154/88 H Blood Pressure [Sitting] Blood Pressure [Standing] Blood Pressure [Supine] O2 Saturation 100 100 100 04/08/23 04/08/23 04/08/23 15:30 16:00 16:03 Temperature Heart Rate 67 66 Heart Rate [ 76 Sitting] Heart Rate [ 82 Standing] Heart Rate [ 66 Supine] Respiratory 12 12 Rate Blood Pressure 145/68 H 126/81 H Blood Pressure 119/76 [Sitting] Blood Pressure 81/54 L [Standing] Blood Pressure 139/81 H [Supine] O2 Saturation 100 99 Oxygen O2 Source Room air - EKG (time done) 1203 EKG releavant findings:: EKG personally interpreted by author of this note. Relevant findings are: Rate: Rate (enter#) (91) Rhythm: NSR Intervals: Other (IVCD) Ischemia: ST depression (He has ST depression especially V3 through V6.) Compare to prior EKG: Changed from prior EKG (The ST depression is new compared to February 06, 2018.) Computer interpretation: Agree with computer 1554 EKG releavant findings:: EKG personally interpreted by author of this note. Relevant findings are: Rate: Rate (enter#) (65) Rhythm: NSR [place]: Normal Intervals: Prolonged [place], Other (IVCD) Ischemia: Non specific changes, Other (Resolved septal lateral ST depression compared to first EKG earlier in the day.) Computer interpretation: Agree with computer - Labs Labs: Laboratory Tests 04/08/23 04/08/23 04/08/23 12:06 12:15 12:15 WBC 5.6 RBC 4.24 L Hgb 14.7 Hct 42.3 MCV 99.8 H MCH 34.7 H MCHC 34.8 RDW 13.4 Plt Count 307 MPV 9.8 Neut # (Auto) 3.0 Lymph # (Auto) 1.5 [place] # (Auto) 0.8 Eos # (Auto) 0.0 Baso # (Auto) 0.0 Absolute Nucleated RBC 0.00 Nucleated RBC % 0.0 Sodium 135 Potassium 3.0 L Chloride 99 L Carbon Dioxide 26 Anion Gap 10.0 BUN 23 H Creatinine 1.5 H Estimated GFR (MDRD) 48 L Glucose 194 H POC Whole Bld Glucose 194 H Calcium 10.0 Magnesium Total Bilirubin 0.6 AST 65 H ALT 37 Alkaline Phosphatase 55 Troponin I High Sens 8.0 Total Protein 7.1 Albumin 4.2 Globulin 2.9 Albumin/Globulin Ratio 1.4 Lipase 74 04/08/23 12:15 WBC RBC Hgb Hct MCV MCH MCHC RDW Plt Count MPV Neut # (Auto) Lymph # (Auto) [place] # (Auto) Eos # (Auto) Baso # (Auto) Absolute Nucleated RBC Nucleated RBC % Sodium Potassium Chloride Carbon Dioxide Anion Gap BUN Creatinine Estimated GFR (MDRD) Glucose POC Whole Bld Glucose Calcium Magnesium 1.4 L Total Bilirubin AST ALT Alkaline Phosphatase Troponin I High Sens Total Protein Albumin Globulin Albumin/Globulin Ratio Lipase - Rads (name of study) Single view chest x-ray is negative. Relevant Findings:: Final report received, EMP independent interpretation of test PD Medical Decision Making - ED course ED course: 57-year-old gentleman with history of hypertension and alcoholism in remission presents with orthostatic near syncope for the last couple of weeks. He appears pale and has borderline blood pressure on triage. His EKG has significant lateral ST depression new from prior. He was queried about chest pain and chest symptoms several times without any positive answers. Subsequently work-up demonstrated normal CBC, modest hypokalemia at 3, mild renal insufficiency with GFR 48, blood sugar 194. The ED emissions testing technician did orthostatics and he was orthostatic with his blood pressure going from 142 systolic supine to 85 systolic standing. He was given a second liter of IV fluids and the potassium was repleted both IV and p.o. My suspicion is that the lateral ST changes might be due to hypokalemia?, Plan to repeat after potassium repletion. His troponin was negative. After correction of hypokalemia and hypomagnesemia his ST depression normalized proving that the ST changes we were seeing on his initial EKG were related to his electrolyte issues. He was feeling much better after IV fluids. He remained orthostatic and was offered observation but declined. My suspicion is that with resolution of his alcoholism he probably no longer needs antihypertensives. Departure - Departure Disposition: 01 Home, Self Care Clinical Impression: Dehydration, Hypokalemia, Hypomagnesemia Condition: Good Record reviewed to determine appropriate education?: Yes Instructions: ED Dehydration Comments: You were seen today for what we call orthostasis, where your blood pressure drops when you stand up. Labs were showing dehydration, low potassium and magnesium levels. Your initial EKG was abnormal, but the abnormalities normalized after correction of your low potassium and magnesium levels. Drink plenty of fluids. Avoid alcohol. I would stop your lisinopril for now. Call your doctor to arrange a follow-up appointment, make the next available appointment. In the interim, return anytime if worse or if new symptoms develop. Forms: PCP List
[2023-04-08] MEDS ORDERED: SODIUM CHLORIDE 0.9% 1,000 ML IV STA (12:32)
[2023-04-08 12:47] LABS: ALBUMIN 4.2 g/dL (3.2-5.5); ALBUMIN/GLOBULIN RATIO 1.4 (1.0-2.2); BILIRUBIN,TOTAL 0.6 mg/dL (0.2-1.0); CREATININE 1.5 mg/dL (0.6-1.3); TOTAL PROTEIN 7.1 g/dL (6.4-8.9)
--- NOTE | 2023-04-08 13:02 | XRAY Report ---
PROCEDURE: Chest 1 View X-Ray INDICATIONS: lightheaded TECHNIQUE: One view of the chest was acquired. COMPARISON: 09/24/2017, 09/14/2017 FINDINGS: Surgical changes and devices: None. Lungs and pleura: No pleural effusions or pneumothorax. Lungs are clear. Mediastinum: Mediastinal contours appear normal. Heart size is normal. Bones and chest wall: No suspicious bony lesions. Age-appropriate degenerative changes are seen. Overlying soft tissues appear unremarkable. IMPRESSION: No acute cardiopulmonary process. Reviewed by: Saad Morrison MD on 04/08/2023 12:00 PM RJ Approved by: Saad Morrison MD on 04/08/2023 12:00 PM RJ Station ID: [id number]
[2023-04-08] MEDS ORDERED: POTASSIUM CHLOR 10 MEQ/100 ML 10 MEQ/100 ML BAG IV STA ×2 (13:05→13:25)
[2023-04-08] MEDS ORDERED: POTASSIUM CHLORIDE 20 MEQ TABLET PO STA (13:25)
[2023-04-08] MEDS ORDERED: LACTATED RINGERS 1,000 ML IV STA ×2 (13:30→15:20)
[2023-04-08] MEDS ORDERED: MAGNESIUM SULFATE 2 GRAM 2 GM/50 ML BAG IV ONE ×2 (14:40)
[2023-04-08 16:11] VITALS: BP 126/81; O2SAT 99
== END 2023-04-08 16:30 | disposition home or self-care (01) ==
LOC: ED 11:36
DX: E86.0 Dehydration (principal); E87.6 Hypokalemia; E83.42 Hypomagnesemia; I10 Essential (primary) hypertension
CPT/HCPCS: 36415; 71045; 80053; 83690; 83735; 84484; 85025; 93005; 96365; 96366; 96368; 99284; A9270; J7120

== ENCOUNTER 2023-06-19 07:35 | Outpatient (CLI) | payer MEDICAID ==
--- NOTE | 2023-06-19 07:14 | CARDIAC PROCEDURE NOTE ---
Stress Test Report Service Date: 06/19/23 Service Time: 08:00 Ordering Provider: Candida Nagy FNP-C Indication for Test: Cardiac risk stratification in very sedentary patient with high ASCVD risk profile and ischemic-appearing EKG at recent E.D. visit for orthostatic symptoms and dehydration. Significant Medical History: Kee has severe, longstanding and debilitating lower back pain, that he tells me is being addressed by Physical Therapy with plan to re-assess with MRI. He was seen at the [facility] ED on 04/08/23 with 2 week history of progressive dizziness/lightheadedness and near-syncope. Work up was notable for initial orthostatis by VS, decreased eGFR, hypokalemia and initial EKG showing anterolateral downsloping ST depression, though he denied experiencing ANY prior chest discomfort and hs-Tn level was normal. Following aggressive IV re- hydration his BP increased with resolution of the orthostasis and normalization of ST segments on repeat EKG. His vasoactive meds were changed, with discontinuation of lisinopril and amlodipine and intiation of daily atorvastatin. A referral to Cardiology at [place] was placed. When seen at a primary care visit on 04/19/23 he was feeling improved; a recommendation for starting a beta ramos had been made but not initiated until this visit. He reports at presentation today that he has been unable to assess his BPs, as he cannot locate his home BP cuff. Cardiac Risk Factors: Positive for hypertension (treated ~10 yrs), major family CAD history (father and paternal grandfather, both in their 60's), long-standing and ongoing use of chewing tobacco and IRISH (not currently treated with CPAP); no history of diabetes. Last lipid panel did not show elevation of LDLc (patient subsequently had atorvastatin initiated after question of CAD was raised). Type of Stress Test: Dobutamine Stress Echocardiography Procedure: -Pharmacologic Stress Test- After signing informed consent, the patient underwent a pharmacologic stress test using Dobutamine. The test was terminated due to patient describing new sharp chest pain (8/10 in severity) and nausea, with severe shakiness and ST depression on EKG. Resting heart rate: 74 Peak heart rate: 136 Normal HR response. Resting BP: 159/91 Peak BP: 201/76 Hypertensive at rest with normal inccrease of systolic, and decrease of diastolic, BP's in response to dobutamine stress. Rhythm during testing: Sinus rhythm throughout; computer analysis indicates 216 PVC's but this appears artifactual due to severe intermittent tremulousness. Symptoms: As above. EKG at rest showed normal sinus rhythm, with tiny inferior and lateral q waves (likely non-pathologic due to septal depolarization) with isoelectric ST segments and normal T wave pattern. EKG at peak stress showed ST depression of 0.5-1.0 mm in severity, borderline positive for ischemia by EKG criteria. In Recovery, immediately following completion of echocardiographic imaging, the patient was given a single sublingual nitroglycerin tablet, which reduced his chest pain within 2 to 3 minutes from a level of 8/10 to 23/10. His heart rate and blood pressure remained elevated and his tremulousness persisted, so he was given 5 mg IV labetalol. Over approximately 30 more minutes of observation in the stress lab his chest pain resolved almost completely and HR and BP came down towards normal, but the episodic tremulousness continued. Therefore he was transferred from the stress lab to the Emergency Department for further evaluation and stabilization, prior to anticipated discharge to home. Echo imaging was performed serially, at rest and with stress. Image interpretation will be reported separately. IMartin MD, was present throughout this pharmacologic stress study and supervised it in its entirety. Summary: 1) Normal resting EKG. 2) Adequate stress was achieved. 3) BP response to pharmacologic agent. 4) Borderline ischemic changes by EKG criteria were seen at peak. 5) Echo image interpretation reveals normal left ventricular size, wall thickness and systolic function, with appropriate hyperdynamic augmentation with dobutamine stress. There were no apparent focal wall motion abnormalities at rest, but there appeared to be subtle hypokinesis of the basal and mid anterior wall with stress, suggestive of no prior infarct but inducible ischemia. No significant valvular abnormality or elevation of estimated pulmonary artery systolic pressure were seen on screening study. See separate report for more details. Conclusions and Recommendations: 1) This dobutamine stress echocardiogram appears positive by (new onset) chest pain, with subtle ST depression by EKG and anterior hypokinesis by echo imaging. 2) The procedure was complicated by prolonged shakiness/tremulousness that was interpreted as a dobutamine effect, though this persisted after SL NTG and IV labetalol administration resulted in reduction in chest discomfort, HR and BP. The patient was triaged to the E.D. for further evaluation and stabilization. 3) Upon return home (assuming full stabilization in E.D.) he was advised to resume metoprolol and continue atorvastion, as well as to call to schedule the planned Cardiology evaluation in [place] as soon as this can be arranged.
[~2023-06-19 07:35] MED LIST: ADENOSINE 6 MG/2 ML VIAL IVP ONE; ATROPINE ABBOJECT 1 MG/10 ML SYRINGE IVP ONE; DOBUTamine 500 MG/250 ML 500 MG/250 ML BAG IV ONE; LABETALOL 20 MG/4 ML SYRINGE IVP ONE; NITROGLYCERIN SL 0.4 MG TABLET SL ONE
[2023-06-19] MEDS ORDERED: LABETALOL 20 MG/4 ML SYRINGE IVP ONE ×2 (09:13→12:29)
[2023-06-19] MEDS ORDERED: LABETALOL 20 MG/4 ML SYRINGE IVP STA (12:27)
[2023-06-19] MEDS ORDERED: NITROGLYCERIN SL 0.4 MG TABLET SL PRN (12:27)
[2023-06-19] MEDS ORDERED: SODIUM CHLORIDE 0.9% 1,000 ML IV ONE (12:30)
[2023-06-19] MEDS ORDERED: DOBUTamine 500 MG/250 ML 500 MG/250 ML BAG IV SCH (13:00)
== END 2023-06-19 07:36 | disposition home or self-care (01) ==
LOC: DI 07:35
PROVIDERS: ATTEND Nurse Practitioner
DX: R94.31 Abnormal electrocardiogram [ECG] [EKG] (principal); I10 Essential (primary) hypertension; Z82.49 Family history of ischemic heart disease and other diseases of the circulatory system; G47.33 Obstructive sleep apnea (adult) (pediatric); F17.220 Nicotine dependence, chewing tobacco, uncomplicated; R07.9 Chest pain, unspecified; R11.0 Nausea; R25.1 Tremor, unspecified
CPT/HCPCS: 93350

== ENCOUNTER 2023-06-19 09:48 | Emergency (ER) | payer MEDICAID ==
[2023-06-19] MEDS ORDERED: ONDANSETRON 4 MG/2 ML VIAL IVP STA (09:51)
[2023-06-19] MEDS ORDERED: SODIUM CHLORIDE 0.9% 1,000 ML IV STA (09:51)
[2023-06-19 10:10] LABS: BASOPHILS % (AUTO) 0.5 %; EOSINOPHILS % (AUTO) 0.2 %; HCT - HEMATOCRIT 37.7 % (42.0-52.0); HGB - HEMOGLOBIN 12.8 g/dL (14.0-18.0); LYMPHOCYTES # (AUTO) 0.9 10^3/uL (1.5-3.5); LYMPHOCYTES % (AUTO) 14.2 %; MEAN CORPUSCULAR HEMOGLOBIN 34.4 pg (27.0-31.0); MEAN CORPUSCULAR VOLUME 101.3 fL (80.0-94.0); MEAN PLATELET VOLUME 9.1 fL (7.4-11.4); MONOCYTES # (AUTO) 0.6 10^3/uL (0.0-1.0); MONOCYTES % (AUTO) 9.1 %; NEUTROPHILS # (AUTO) 4.7 10^3/uL (1.5-6.6); NEUTROPHILS % (AUTO) 75.2 %; PLT - PLATELET COUNT 108 10^3/uL (130-450); RED BLOOD COUNT 3.72 10^6/uL (4.70-6.10); RED CELL DISTRIBUTION WIDTH 13.2 % (12.0-15.0); WHITE BLOOD COUNT 6.3 x10^3/uL (4.8-10.8)
--- NOTE | 2023-06-19 10:15 | ED Physician Documentation ---
History of Present Illness - Stated complaint Stated Complaint: DIZZINESS - Chief complaint Chief Complaint: Neuro - History obtained from History obtained from: Patient - Additonal information Additional information: The patient is brought to the emergency department from the [facility] clinic for chief complaint of shaking after a dobutamine stress echo. The patient has never had anything like this happen before. According to the flying i instructor Dr. Marcano who is overseeing the stress test, the patient received dobutamine and increasing doses and did develop some chest pain and ST depressions. The test was aborted, But the patient began to feel lightheaded and have some episodes of shaking. The patient was given a total of 10 mg of labetalol but although his symptoms have improved, they have not completely gone away. The patient does note that the chest pain resolved after he was given nitroglycerin. He states that as far as he knows he is otherwise fairly healthy. He was feeling fine before the stress test. He does note that his lightheadedness has resolved with a liter of fluid that he received in the [facility] clinic. PD PAST MEDICAL HISTORY - Past Medical History Cardiovascular: Hypertension Respiratory: Asthma, Sleep apnea Endocrine/Autoimmune: None GI: Colon polyps : None HEENT: Chronic vision loss Psych: None Musculoskeletal: Osteoarthritis, Gout, Chronic back pain Derm: None - Past Surgical History Past Surgical History: Yes General: Colonoscopy HEENT: Tonsil/Adenoidectomy - Present Medications Home Medications: Ambulatory Orders Medication Instructions Recorded Confirmed Albuterol Sulfate [Proair Hfa] 1 puffs INH DAILY 06/17/15 06/19/23 Lisinopril 1 tab PO DAILY 05/29/16 06/19/23 Triamcinolone Acetonide [Nasacort] 1 spray JAG DAILY 05/29/16 06/19/23 Cetirizine [ZyrTEC] 10 mg PO DAILY PRN 02/06/18 06/19/23 Amlodipine Besylate [Norvasc] 10 mg PO DAILY 07/21/21 06/19/23 Mometasone/Formoterol [Dulera 200 1 puffs INH BID 07/21/21 06/19/23 Mcg-5 Mcg Inhaler] Montelukast [Singulair] 10 mg PO QPM 07/21/21 06/19/23 Aspirin Chewable [[place] 81 mg PO DAILY #60 tablet 11/07/23 Aspirin] Nitroglycerin [Nitrostat] 0.4 mg SL [id number] #40 tablet 06/19/23 - Allergies Allergies/Adverse Reactions: Allergies Allergy/AdvReac Type Severity Reaction Status Date / Time cat dander Allergy Hives Verified 04/08/23 11:59 crab Allergy Hives Verified 04/08/23 11:59 dog dander Allergy Hives Verified 04/08/23 11:59 - Social History Does the pt smoke?: No Smoking Status: Never smoker Does the pt drink ETOH?: Yes Does the pt have substance abuse?: No - Immunizations Immunizations are current?: Yes - POLST Patient has POLST: No PD ED PE NORMAL - Vitals Vital signs reviewed: Yes - General General: Alert and oriented X 3, No acute distress, Well developed/nourished - HEENT HEENT: Atraumatic, PERRL, EOMI, Moist mucous membranes - Neck Neck: Supple, no meningeal sign - Cardiac Cardiac: RRR, No murmur - Respiratory Respiratory: No respiratory distress, Clear bilaterally - Abdomen Abdomen: Soft, Non tender, Non distended - Derm Derm: Normal color, Warm and dry, No rash - Extremities Extremities: No deformity, No edema - Neuro Neuro: Alert and oriented X 3, Other (Tremors of hands and to a certain extent, his trunk. Otherwise neurologic exam is grossly intact.) - Psych Psych: Normal mood, Normal affect Results - Vitals Vitals: Vital Signs - 24 hr 06/19/23 06/19/23 06/19/23 09:52 12:10 13:29 Temperature 36.8 C Heart Rate 73 73 77 Respiratory 16 18 Rate Blood Pressure 158/92 H 177/82 H 140/97 H O2 Saturation 96 94 97 06/19/23 06/19/23 06/19/23 13:37 15:30 17:49 Temperature Heart Rate 73 66 78 Respiratory 18 17 17 Rate Blood Pressure 162/82 H 162/84 H 185/90 H O2 Saturation 95 93 97 Oxygen O2 Source Room air - Labs Labs: Laboratory Tests 06/19/23 06/19/23 06/19/23 10:05 10:05 12:15 WBC 6.3 RBC 3.72 L Hgb 12.8 L Hct 37.7 L MCV 101.3 H MCH 34.4 H MCHC 34.0 RDW 13.2 Plt Count 108 L MPV 9.1 Neut # (Auto) 4.7 Lymph # (Auto) 0.9 L [place] # (Auto) 0.6 Eos # (Auto) 0.0 Baso # (Auto) 0.0 Absolute Nucleated RBC 0.00 Nucleated RBC % 0.0 Sodium 143 Potassium 3.5 Chloride 105 Carbon Dioxide 21 Anion Gap 17.0 H BUN 8 Creatinine 0.7 Estimated GFR (MDRD) 115 Glucose 90 Calcium 8.7 Total Bilirubin 0.8 AST 54 H ALT 24 Alkaline Phosphatase 57 Troponin I High Sens 23.5 H* 56.2 H* Total Protein 6.6 Albumin 4.0 Globulin 2.6 Albumin/Globulin Ratio 1.5 Lipase < 10 L 06/19/23 14:18 WBC RBC Hgb Hct MCV MCH MCHC RDW Plt Count MPV Neut # (Auto) Lymph # (Auto) [place] # (Auto) Eos # (Auto) Baso # (Auto) Absolute Nucleated RBC Nucleated RBC % Sodium Potassium Chloride Carbon Dioxide Anion Gap BUN Creatinine Estimated GFR (MDRD) Glucose Calcium Total Bilirubin AST ALT Alkaline Phosphatase Troponin I High Sens 57.5 H* Total Protein Albumin Globulin Albumin/Globulin Ratio Lipase PD Medical Decision Making - ED course Complexity details: reviewed results, re-evaluated patient, considered differential, d/w patient ED course: The patient was worked up with laboratory studies including troponin, as well as EKG. He was given a dose of Valium to help with his shakes. The patient's initial troponin was 23 and the second one was 56. The patient was feeling much better after symptomatic treatment Valium and his chest pain never did return. I did have a apartment community manager call around to area hospitals to see if this patient could be transferred, but we were told by [facility] that there is a minimum 3 to 4- day wait for transfer for all but the most emergent cases, given That all of the hospitals in [place] are filled to over capacity and unable to accept transfers. I performed a third troponin at the 2-hour fabricio after the second troponin and this was found to be 57. I felt that the patient's levels were stabilizing out. I reviewed his chart and found that he had a referral in place to schedule a cardiology at the [facility], and I did reach out to their on-call flying i instructor, Dr. Taj Boss. After reviewing the patient's case with her, she was able to get the patient an appointment with her on June 26 at 11:45 in the morning. She requested that the patient be prescribed aspirin and nitroglycerin and that he bring his meds to the appointment. Additionally, she requested that my documentation in the stress test documentation be faxed to the clinic at [phone]. The flying i instructor has set up an appointment to see her in a week and that he must not miss this appointment. We have discussed taking his medications and picking up the new medications at the pharmacy of his choice. The patient understands the importance of taking his meds and of making the appointment. We have discussed indications for return including if he should develop severe chest pain or shortness of breath. Departure - Departure Disposition: 01 Home, Self Care Clinical Impression: Non-ST elevation NC (NSTEMI) Coronary artery disease Qualifiers: Coronary Disease-Associated Artery/Lesion type: unspecified vessel or lesion type [place] vs. transplanted heart: [place] heart Associated angina: unspecified whether angina present Qualified Code(s): I25.10 - Atherosclerotic heart disease of [place] coronary artery without angina pectoris Condition: Stable Instructions: CAD, ED Heart Disease Risk Factors Prescriptions: Nitroglycerin [Nitrostat] 0.4 mg SL [id number] #40 tablet Aspirin Chewable [[place] Aspirin] 81 mg PO DAILY #60 tablet Comments: Today, you showed concerning signs for blockages in your heart arteries on your stress test. You were sent to the emergency department and did have some elevation of your cardiac enzymes, which is some stress to your heart muscle from the blockages and not enough blood flow. As such, your case was discussed with the on-call flying i instructor for [facility] cardiology, Dr. Joseph. She has reviewed your case and made an appointment for you for June 26, at 11:45 in the morning. This will be at the [place] branch of [facility] which is located at [address] [facility]. in [place]. This is on the [facility]. It is very important that you bring your medications with you so that the flying i instructor can review your medications. I will be starting you on 2 new medications: Aspirin and nitroglycerin. The prescriptions for these will be electronically transmitted to the [facility] in [place]. Please pick these up as soon as possible. It is important that you do not miss this appointment with the flying i instructor, as you are at risk for having a bigger heart attack if you do not have appropriate specialty care. If you develop severe shortness of breath or chest pain in the meantime, please return to the emergency department. Forms: PCP List Discharge Date/Time: 06/19/23 18:01
[2023-06-19] MEDS ORDERED: diazePAM 5 MG TABLET PO STA (10:16)
[2023-06-19 10:31] LABS: ALBUMIN/GLOBULIN RATIO 1.5 (1.0-2.2); ALKALINE PHOSPHATASE 57 IU/L (42-121); ALT ALANINE AMINOTRANSFERASE 24 IU/L (10-60); AST ASPARTATE AMINOTRANSFERASE 54 IU/L (10-42); BILIRUBIN,TOTAL 0.8 mg/dL (0.2-1.0); BUN - BLOOD UREA NITROGEN 8 mg/dL (6-20); CALCIUM 8.7 mg/dL (8.5-10.3); CARBON DIOXIDE - CO2 21 mmol/L (21-32); CHLORIDE 105 mmol/L (101-111); CREATININE 0.7 mg/dL (0.6-1.3); GFR - MDRD 115 (>89); GLUCOSE 90 mg/dL (74-104); LIPASE < 10 U/L (11-82); POTASSIUM 3.5 mmol/L (3.5-4.5); SODIUM 143 mmol/L (135-145); TOTAL PROTEIN 6.6 g/dL (6.4-8.9)
[2023-06-19 10:34] LABS: TROPONIN I HIGH SENSITIVITY 23.5 ng/L (2.3-19.7)
[2023-06-19] MEDS ORDERED: ASPIRIN CHEW 81 MG TABLET PO STA (13:02)
[2023-06-19] MEDS ORDERED: ENOXAPARIN 60 MG/0.6 ML SYRINGE SUBQ STA (13:06)
[2023-06-19] MEDS ORDERED: METOPROLOL SUCCINATE 50 MG TABLET PO ONE (14:00)
[2023-06-19 17:58] VITALS: BP 185/90; O2SAT 97
== END 2023-06-19 18:01 | disposition home or self-care (01) ==
LOC: ED 09:48
DX: I21.4 Non-ST elevation (NSTEMI) myocardial infarction (principal); I25.10 Atherosclerotic heart disease of native coronary artery without angina pectoris; R94.31 Abnormal electrocardiogram [ECG] [EKG]; I10 Essential (primary) hypertension; G47.33 Obstructive sleep apnea (adult) (pediatric); F17.220 Nicotine dependence, chewing tobacco, uncomplicated
CPT/HCPCS: 36415; 80053; 83690; 84484; 85025; 93350; 96372; 96374; 99283; 99284; A9270; J1250; J1650

== ENCOUNTER 2023-12-27 08:10 | Outpatient (CLI) | payer MEDICAID ==
[2023-12-27 08:47] LABS: ALKALINE PHOSPHATASE 76 IU/L (42-121); ALT ALANINE AMINOTRANSFERASE 40 IU/L (10-60); AST ASPARTATE AMINOTRANSFERASE 66 IU/L (10-42); BILIRUBIN,DIRECT 0.22 mg/dL (0.03-0.18); BILIRUBIN,TOTAL 0.7 mg/dL (0.2-1.0); CHOL/HDL RATIO 2.2 (<5.0); CHOLESTEROL 120 mg/dL; HDL CHOLESTEROL 55 mg/dL; LDL CHOLESTEROL,CALCULATED 44 mg/dL; LDL/HDL RATIO 0.8 (<3.6); TOTAL PROTEIN 7.2 g/dL (6.4-8.9); TRIGLYCERIDES 105 mg/dL (48-352); VLDL CHOLESTEROL 21 mg/dL
[2023-12-27 09:04] LABS: THYROID STIMULATING HORMONE 8.04 uIU/mL (0.34-5.60)
[2023-12-27 10:40] LABS: ESTIMATED AVERAGE GLUCOSE 114 mg/dL (70-100); HEMOGLOBIN A1c% 5.6 % (4.27-6.07)
== END 2023-12-27 08:11 | disposition home or self-care (01) ==
LOC: LAB 08:10
PROVIDERS: ATTEND Internal Medicine Cardiovascular Disease
DX: E78.5 Hyperlipidemia, unspecified (principal); R73.9 Hyperglycemia, unspecified
CPT/HCPCS: 36415; 80061; 80076; 83036; 83721; 84439; 84443